=== PATIENT | female | born 1980 | race American Indian/Alaskan Native ===

== ENCOUNTER 2017-11-05 05:20 | Emergency (ER) | payer BC ==
[2017-11-05 05:59] LABS: Basophils % (Auto) 0.2 % (0.0-1.8); Eosinophils # (Auto) 0.1 K/mm3 (0.0-0.4); Eosinophils % (Auto) 0.9 % (0.0-4.3); Hematocrit 38.6 % (30.3-42.9); Hemoglobin 12.7 gm/dl (10.1-14.3); Lymphocytes # (Auto) 0.8 K/mm3 (1.2-5.4); Lymphocytes % (Auto) 7.4 % (13.4-35.0); Mean Corpuscular HGB Conc 33 % (30-34); Mean Corpuscular Hemoglobin 27 pg (28-32); Mean Corpuscular Volume 83 fl (79-97); Monocytes # (Auto) 0.6 K/mm3 (0.0-0.8); Monocytes % (Auto) 6.4 % (0.0-7.3); Platelet Count 253 K/mm3 (140-440); Red Blood Count 4.66 M/mm3 (3.65-5.03); Red Cell Distribution Width 14.4 % (13.2-15.2)
[2017-11-05 06:44] LABS: Alanine Aminotransferase 14 units/L (7-56); Albumin 4.1 g/dL (3.9-5); BUN/Creatinine Ratio 18; Blood Urea Nitrogen 11 mg/dL (7-17); Calcium 8.6 mg/dL (8.4-10.2); Hemolysis Index 5
--- NOTE | 2017-11-05 07:00 | Emergency Department Report ---
HPI - General Chief Complaint: Abdominal Pain Time Seen by Provider: 11/05/17 06:33 - HPI HPI: 36-year-old female presents to the emergency department, dropped off by a family member, with complaint of nausea without vomiting, diarrhea and some abdominal soreness that she believes is secondary to the diarrhea. She has some mild dizziness. The symptoms started yesterday. She says she has had about 4-5 episodes of loose watery stool each day. She tries to stay hydrated orally but each time she feels that it makes her have to have another episode of diarrhea. No recent travel. Her daughter is ill with similar symptoms. She has a primary care physician, Dr. Jordan, but has not seen them regarding her symptoms. She has a past medical history of anxiety. She has not taken anything for her symptoms prior to presentation. No alleviating factors. ED Past Medical Hx - Past Medical History Previous Medical History?: Yes Hx Psychiatric Treatment: Yes (Anxiety, panic attacks) Additional medical history: GERD - Surgical History Past Surgical History?: Yes Additional Surgical History: C-SECT X1 - Social History Smoking Status: Never Smoker Substance Use Type: None - Medications Home Medications: Home Medications Medication Instructions Recorded Confirmed Last Taken Type Amitriptyline [Elavil] 25 mg PO QHS 09/23/15 09/23/15 09/22/15 History Famotidine [Pepcid] 20 mg PO BID #40 tablet 09/23/15 Unknown Rx Hyoscyamine Subl [Levsin Sl 0.125 0.125 mg SL Q6HR PRN #20 tab 09/23/15 Unknown Rx TAB] Promethazine [Phenergan TAB] 25 mg PO Q6HR PRN #20 tab 09/23/15 Unknown Rx ED Review of Systems ROS: Stated complaint: DIARRHEA, NAUSEA AND DIZZY Other details as noted in HPI Comment: All other systems reviewed and negative Constitutional: denies: chills, fever Eyes: denies: eye pain, eye discharge, vision change ENT: denies: ear pain, throat pain Respiratory: denies: cough, shortness of breath, wheezing Cardiovascular: denies: chest pain, palpitations Gastrointestinal: abdominal pain, nausea, diarrhea. denies: vomiting Genitourinary: denies: urgency, dysuria, discharge Musculoskeletal: denies: back pain, joint swelling, arthralgia Skin: denies: rash, lesions Neurological: denies: headache, weakness, paresthesias Physical Exam - Physical Exam Vital Signs: Vital Signs 11/05/17 11/05/17 05:25 06:27 Temperature 98 F 99.3 F Pulse Rate 111 H 96 H Respiratory 18 17 Rate Blood Pressure 121/82 Blood Pressure 119/75 [Left] O2 Sat by Pulse 98 100 Oximetry Physical Exam: GENERAL: The patient is well-developed well-nourished. HENT: Normocephalic. Atraumatic. Patient has moist mucous membranes. EYES: Extraocular motions are intact. Pupils equal reactive to light bilaterally. NECK: Supple. Trachea is midline. CHEST/LUNGS: Clear to auscultation. There is no respiratory distress noted. HEART/CARDIOVASCULAR: Regular. There is no tachycardia. There is no murmur. ABDOMEN: Abdomen is soft, nontender. Patient hyperactive normal bowel sounds. There is no abdominal distention. SKIN: Skin is warm and dry. NEURO: The patient is awake, alert, and oriented. The patient is cooperative. The patient has no focal neurologic deficits. The patient has normal speech. MUSCULOSKELETAL: There is no tenderness or deformity. There is no limitation range of motion. There is no evidence of acute injury. ED Course Vital Signs 11/05/17 11/05/17 05:25 06:27 Temperature 98 F 99.3 F Pulse Rate 111 H 96 H Respiratory 18 17 Rate Blood Pressure 121/82 Blood Pressure 119/75 [Left] O2 Sat by Pulse 98 100 Oximetry ED Medical Decision Making - Lab Data Result diagrams: 11/05/17 05:34 11/05/17 05:34 - Radiology Data Radiology results: image reviewed interpreted by me: Abdominal x-ray shows nonspecific nonobstructive bowel gas. - Medical Decision Making Patient presents with some abdominal cramping and diarrhea. Labs been unremarkable including no leukocytosis, electrolyte abnormalities and she has normal belly labs including bilirubin, lipase and LFTs. Patient is not . Urinalysis does not show any urinary tract infection. We attempted oral challenge with the patient had increased cramping and felt like she had another diarrhea episode coming. She was given IV fluid and reevaluated after this and says she is feeling much better and able to keep down some Gatorade. She says that she has good follow-up with a primary care physician. Vital signs stable throughout her ED course including being afebrile. She will follow up with her PCP and return to the ER with any worsening of her symptoms or any acute distress. - Differential Diagnosis viral syndrome, , food poisoning, C. difficile Critical Care Time: No Critical care attestation.: If time is entered above; I have spent that time in minutes in the direct care of this critically ill patient, excluding procedure time. ED Disposition Clinical Impression: Abdominal cramping, Dehydration Diarrhea Qualifiers: Diarrhea type: unspecified type Qualified Code(s): R19.7 - Diarrhea, unspecified Disposition: DC-01 TO HOME OR SELFCARE Is pt being admited?: No Condition: Stable Instructions: Acute Diarrhea (ED), Abdominal Pain (ED) Additional Instructions: Please follow-up with your primary care physician in the next few days. Increase your oral rehydration. Return to the emergency Department with any worsening of your symptoms or any acute distress. Referrals: PRIMARY MD JOSE [Primary Care Provider] - 3-5 Days Time of Disposition: 09:14
[2017-11-05 07:08] LABS: Bilirubin,Urine NEG (Negative); Blood,Urine MOD (Negative); Color,Urine Yellow (Yellow); Mucus,Urine FEW /HPF; Nitrite,Urine NEG (Negative); Protein,Urine <15 mg/dL mg/dL (Negative); Urobilinogen,Urine < 2.0 mg/dL (<2.0)
[2017-11-05] MEDS ORDERED: NACL 0.9% 1000 ML 1,000 ML IV ONE (07:54)
--- NOTE | 2017-11-05 08:50 | XRay Report ---
FINAL REPORT EXAM: XR ABDOMEN 2V HISTORY: Abd cramping TECHNIQUE: upright and supine views of the abdomen and pelvis PRIORS: None. FINDINGS: No pneumoperitoneum. Bowel gas pattern is nonobstructive. Fluid levels are present in the colon. No pathologic calcification or fracture. IMPRESSION: Fluid in the colon may be infectious or inflammatory in etiology. Correlation for diarrheal disease is requested. No evident obstruction. Consider CT follow-up as warranted.
[2017-11-05 09:37] VITALS: BP 114/75
== END 2017-11-05 09:36 | disposition home or self-care (01) ==
LOC: ED 05:20
DX: E86.0 Dehydration (principal); R10.9 Unspecified abdominal pain; R19.7 Diarrhea, unspecified
CPT/HCPCS: 36415; 74019; 80053; 81001; 84703; 85025; 93005; 93010; 96360; 99284; J7030